=== PATIENT | female | born 1975 | race Caucasian/White ===

== ENCOUNTER 2021-07-17 07:04 | Emergency (ER) | payer OTHER ==
[~2021-07-17 07:04] MED LIST: IBUPROFEN800 MG PO; METFORMIN HCL500 MG PO; ZESTRIL5 MG PO
[2021-07-17 08:07] LABS: BASOPHIL 0.8 % (0-2); EOSINOPHIL 0.3 % (0-5); HCT 41.1 % (37.0-47.0); HGB 12.1 g/dl (12.5-16.0); LYMPHOCYTE 38.9 % (15-48); MCH 20.9 pg (25.0-31.0); MCHC 29.4 g/dL (32.0-36.0); MCV 70.9 fL (78.0-100.0); MONOCYTE 7.8 % (0-12); MPV 9.4 fL (6.0-9.5); NRBC 0; PLT 293 K/uL (150-400); RDW 15.6 % (11.5-14.0); WBC 6.3 K/uL (4.0-10.5)
[2021-07-17 08:14] LABS: IRON % SATURATION 6.5 %SAT (20-50)
[2021-07-17 08:16] LABS: INR 0.93 (0.9-1.2); PROTHROMBIN TIME 11.9 SECONDS (11.8-13.4); PTT 31.9 SECONDS (24.4-34.7)
[2021-07-17 08:19] LABS: PRO-BNP 12 pg/mL (<125)
[2021-07-17 08:24] LABS: D-DIMER 1.99 ug/mLFEU (0.00-0.41)
[2021-07-17 08:26] LABS: ALBUMIN 3.6 g/dL (3.4-5.0); BILIRUBIN - TOTAL 0.6 mg/dL (0.2-1.0); BUN/CREAT RATIO (CALC) 25.4 RATIO; C-REACTIVE PROTEIN 0.7 mg/dL (<=0.90); CREATININE 0.71 mg/dL (0.51-0.95); FT4 (FREE T4) 1.2 ng/dL (0.76-1.46); POTASSIUM 4.2 mmol/L (3.5-5.1); TOTAL PROTEIN 7.6 g/dL (6.4-8.2)
== END 2021-07-17 11:10 | disposition home or self-care (01) ==
LOC: FER 07:04
PROVIDERS: Emergency Medicine
DX: I47.1 Supraventricular tachycardia (principal); D50.9 Iron deficiency anemia, unspecified; E11.9 Type 2 diabetes mellitus without complications; Z79.84 Long term (current) use of oral hypoglycemic drugs
CPT/HCPCS: 36415; 71046; 71275; 80053; 82728; 83540; 83550; 83615; 83735; 83880; 84439; 84443; 84484; 85025; 85379; 85610; 85730; 86140; 93005; J0153; J7030; Q9967